=== PATIENT | male | born 1950 | race Caucasian/White ===

== ENCOUNTER → 2023-09-28 08:45 | Outpatient (REF) | payer MEDICARE, OTHER, SELFPAY ==
[2023-09-28 10:16] LABS: Hematocrit 39.8 % (39.0-52.0); Mean Corp Hgb Conc. 35.2 g/dL (33.0-37.0); Mean Corpuscular Hgb 31.5 pg (27.0-31.0); Mean Corpuscular Volume 89.4 fL (80.0-94.0); Mean Platelet Volume 8.8 fL (7.4-10.4); Platelet Count 404 10^3/uL (130-400); Red Blood Cell Count 4.45 10^6/uL (4.70-6.10); Red Cell Dist. Width 12.8 % (11.5-14.5); White Blood Cell Count 11.1 10^3/uL (4.8-10.8)
[2023-09-28 10:31] LABS: ALT (SGPT) 25 U/L (0-50); AST (SGOT) 28 U/L (17-59); Albumin 4.3 g/dl (3.5-5.0); Alkaline Phosphatase 72 U/L (38-126); Blood Urea Nitrogen 17 mg/dl (9-20); Calcium 9.6 mg/dl (8.4-10.2); Carbon Dioxide 27 mmol/L (22-30); Chloride 105 mmol/L (98-107); Glucose 113 mg/dl (70-99); Potassium 5.2 mmol/L (3.5-5.1); Sodium 138 mmol/L (135-145); Total Bilirubin 0.7 mg/dl (0.2-1.3); Total Protein 7.1 g/dl (6.3-8.2); eGFR > 60.00
[2023-09-28 12:37] LABS: Glycohemoglobin (HgbA1c) 7.2 % (4.0-5.6)
== END ==
LOC: SDSPAT 08:45
PROVIDERS: ATTENDING PHYSICIAN Orthopaedic Surgery Orthopaedic Surgery of the Spine; FAMILY PHYSICIAN Student in an Organized Health Care Education/Training Program; OTHER PHYSICIAN Physician Assistant Medical
DX: Z01.818 Encounter for other preprocedural examination (principal); E11.9 Type 2 diabetes mellitus without complications
CPT/HCPCS: 36415; 80053; 83036; 85027; 87070; 93005

== ENCOUNTER 2023-10-18 06:02 | Day surgery (SDC) | payer MEDICARE, OTHER, SELFPAY ==
--- NOTE | 2023-09-21 11:12 | CM ---
Patient is scheduled for lumbar spine surgery on 10/18/23. Spoke with patient prior to surgery via telephone. Introduced role of the Orthopedic Navigator. Patient reports that he lives with his spouse in a three story home. There are 12 steps from
first level to living room, dining, kitchen and half bath. Up a flight of steps to the second floor where bedroom and full bathroom are. There is a powder room on the main level. floor. He currently functions independently. He has a rolling walker
and cane. He has never had VN services. PCP is Dr. Gilberto Potter.
Discussed orthopedic program, post surgical plans and tentative plan for patient to return home when directed by surgeon. Patient is in agreement with tentative plan and will have support from his spouse when he goes home.
Per surgical reservation sheet from Dr. Mendiola's office, patient does need a brace. 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
Plan: Orthopedic Navigator will remain available to assist with the care of patient and will reassess discharge needs after surgery.
[2023-09-28 12:29] VITALS: BMI 29.0
[2023-09-28 14:51] VITALS: BMI 29.0
--- NOTE | 2023-10-09 10:55 | PTCARENOTE ---
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 Kamala MARTINEZ was notified.
[2023-10-18] VITALS (12 sets, daily range): BP systolic 140–157; BP diastolic 61–96
[2023-10-18] MEDS: CELEBREX 200 MG PO (06:42)
[2023-10-18] MEDS: TYLENOL 1000 MG PO (06:42)
[2023-10-18] MEDS: SKELAXIN 800 MG PO (06:43)
[2023-10-18] MEDS: LYRICA 150 MG PO (06:43)
[2023-10-18] MEDS: NORMOSOL-R 1000 IV (06:44)
[2023-10-18 06:50] LABS: Glucose - Point of Care 135 mg/dl (70-99)
[2023-10-18 10:19] LABS: Glucose - Point of Care 167 mg/dl (70-99)
== END 2023-10-18 12:40 | disposition home or self-care (01) ==
LOC: SDS 06:02
PROVIDERS: ATTENDING PHYSICIAN Orthopaedic Surgery Orthopaedic Surgery of the Spine
DX: M47.12 Other spondylosis with myelopathy, cervical region (principal)
CPT/HCPCS: 22853; 22554; 20930; C1713; 72020; 82962